=== PATIENT | female | born 1975 | race Two or more races ===

== ENCOUNTER → 2018-02-22 | Outpatient (CLI) | payer OTHER ==
[~2018-02-22] MED LIST: BUPIVACAINE MPF 0.25% 10 ML VIAL. ONE; CETI10TA22 PO; HYDR-971 PO; IV RINGERS SOLUTION,LACTATED 1,000 ML IV SCH; LEVO50TA5 PO; LIDOCAINE 1% PF 30 ML VIAL. ONE; MIDAZOLAM HCL PF 2 MG/2 ML VIAL. ONE; ONDA4TAB7 PO; RANI300T3 PO; TRAN650T3 PO; methylPREDNISolone ACETATE 40 MG/ML VIAL. ONE
[2018-02-22 10:10] VITALS: BP 123/75
== END ==
LOC: SURG 08:08
PROVIDERS: ATTEND Anesthesiology Pain Medicine
DX: M47.816 Spondylosis without myelopathy or radiculopathy, lumbar region (principal); J45.909 Unspecified asthma, uncomplicated; Z90.710 Acquired absence of both cervix and uterus; Z90.49 Acquired absence of other specified parts of digestive tract; Z90.3 Acquired absence of stomach [part of]
CPT/HCPCS: 64493; 64494; J1030; J2001; J2250; J3010; J3490; J7120; 99152; 99153

== ENCOUNTER → 2018-09-27 | Outpatient (CLI) | payer OTHER ==
[2018-02-22 10:10] VITALS: BP 123/75
[~2018-09-27] MED LIST changes: +0.9 % SODIUM CHLORIDE 10 ML VIAL ONE; -BUPIVACAINE MPF 0.25% 10 ML VIAL. ONE; +BUPIVACAINE MPF 0.25% 30 ML VIAL. ONE; +HYDR-3165 PO; -HYDR-971 PO; +IOHEXOL 300 MG/ML 50 ML VIAL. ONE; -IV RINGERS SOLUTION,LACTATED 1,000 ML IV SCH; -MIDAZOLAM HCL PF 2 MG/2 ML VIAL. ONE
== END | disposition home or self-care (01) ==
LOC: SURG 07:56
PROVIDERS: ATTEND Anesthesiology Pain Medicine
DX: M54.16 Radiculopathy, lumbar region (principal); M16.0 Bilateral primary osteoarthritis of hip; F41.9 Anxiety disorder, unspecified; J45.909 Unspecified asthma, uncomplicated; Z90.710 Acquired absence of both cervix and uterus; Z90.49 Acquired absence of other specified parts of digestive tract; Z90.3 Acquired absence of stomach [part of]; G47.30 Sleep apnea, unspecified; Z79.899 Other long term (current) drug therapy
CPT/HCPCS: 20610; 62323; 77002; 99152; J1030; J2001; J3010; J3490; Q9967